=== PATIENT | female | born 1975 ===

== ENCOUNTER 2022-11-14 18:21 | Outpatient (REF) | payer BC, SELFPAY ==
[2022-11-14 19:19] LABS: HCT 37.3 % (36.0-46.0); MCH 28.8 pg (27.0-33.0); MCHC 32.2 % (32.0-36.0); MCV 89 fL (80-95); MPV 10.7 fL (8.0-11.0); Platelet Count 292 10^3/uL (130-400); RBC 4.17 10^6/uL (3.93-5.22); RDW 13.1 % (11.7-14.6); RDW-SD 42.8 fL; WBC 9.06 10^3/uL (4.4-10.8)
[2022-11-14 19:25] LABS: ESR 9 mm/hr (0-20)
[2022-11-14 19:52] LABS: ALT 32 U/L (14-59); AST 27 U/L (15-37); Albumin 4.1 g/dL (3.4-5.0); Alkaline Phosphatase 66 U/L (46-116); Anion Gap 6.1 mmol/L (3-11); BUN 18 mg/dL (7-18); Bilirubin, Total 0.2 mg/dL (0.2-1.0); CO2 29.9 mmol/L (21.0-32.0); CREATININE 0.8 mg/dL (0.55-1.02); Calcium 9.1 mg/dL (8.5-10.1); Chloride 102 mmol/L (98-107); Creatine Kinase 154 U/L (26-192); Estimated GFR 90.27 (mL/min/1.73m2); Glucose 123 mg/dL (74-106); Potassium 3.7 mmol/L (3.5-5.1); Sodium 138 mmol/L (136-145); Total Protein 7.8 g/dL (6.4-8.2)
[2022-11-17 17:13] LABS: ANA Pattern: Speckled
== END 2022-11-14 18:22 | disposition home or self-care (01) ==
LOC: NCHCN 18:21
PROVIDERS: PCP Internal Medicine; Visit Provider Internal Medicine
DX: M33.20 Polymyositis, organ involvement unspecified (principal)
CPT/HCPCS: 80053; 82550; 85027; 85652; 86039; 86141

== ENCOUNTER 2022-12-11 15:44 | Outpatient (REF) | payer BC, SELFPAY ==
[2022-12-11 19:48] LABS: Creatine Kinase 146 U/L (26-192); Glucose 87 mg/dL (74-106)
[2022-12-12 18:01] LABS: CRP, High Sensitivity 8.46 mg/L (See Note); Rheumatoid Factor <8.6 IU/mL (<12.0)
[2022-12-13 10:26] LABS: Cyclic Citrullinated Peptide <2.5 U/mL (<5.0)
== END 2022-12-11 15:45 | disposition home or self-care (01) ==
LOC: NCHCN 15:44
PROVIDERS: PCP Internal Medicine; Visit Provider Internal Medicine
DX: M16.0 Bilateral primary osteoarthritis of hip (principal); R21 Rash and other nonspecific skin eruption; M33.20 Polymyositis, organ involvement unspecified; Z01.84 Encounter for antibody response examination
CPT/HCPCS: 82550; 82947; 86141; 86200; 86431